=== PATIENT | male | born 1990 | race Native Hawaiian/Other Pacific Islander ===

== ENCOUNTER 2020-03-18 19:02 | Emergency (ER) | payer OTHER ==
--- NOTE | 2020-03-18 20:01 | XRAY Report ---
PROCEDURE: Wrist 4 View LT INDICATIONS: FELL WITH OUTREACHED L WRIST/HAND/PAIN TECHNIQUE: 4 views of the wrist were acquired. COMPARISON: None FINDINGS: Bones: Question acute scaphoid waist fracture. Old ulnar styloid avulsion No suspicious bony lesions. Scaphoid view: Question acute scaphoid waist fracture. However, this is less obvious on the scaphoid view than on other views. Soft tissues: No suspicious soft tissue calcifications. IMPRESSION: Question scaphoid waist fracture. Consider CT for confirmation. Reviewed by: Gurjit Strange MD on 03/18/2020 8:00 PM PDT Approved by: Gurjit Strange MD on 03/18/2020 8:00 PM PDT Station ID: [id number]
--- NOTE | 2020-03-18 20:02 | XRAY Report ---
PROCEDURE: Elbow 3 View LT INDICATIONS: FELL/INJURED L ELBOW/ PAIN TECHNIQUE: 3 views of the elbow were acquired. COMPARISON: None FINDINGS: Bones: No fractures or dislocations. No suspicious bony lesions. Soft tissues: No elbow joint effusion. No suspicious soft tissue calcifications. IMPRESSION: No evidence acute bony abnormality of the left elbow. Reviewed by: Gurjit Strange MD on 03/18/2020 8:01 PM PDT Approved by: Gurjit Strange MD on 03/18/2020 8:01 PM PDT Station ID: [id number]
--- NOTE | 2020-03-18 20:44 | ED Physician Documentation ---
History of Present Illness - Stated complaint Stated Complaint: LT ARM INJ - Chief complaint Chief Complaint: Trauma Ext - Additonal information Additional information: 29-year-old male presents to the emergency department for evaluation of left elbow and wrist pain. He reports that he was jogging this evening and turned to look behind him and he ended up falling backwards. He hyperextended his arm underneath him when he fell and has had pain in the elbow and wrist since. He denies any history of previous injury to this arm or wrist. He is right-hand dominant Review of Systems Constitutional: reports: Reviewed and negative Ears: reports: Reviewed and negative Nose: reports: Reviewed and negative Cardiac: reports: Reviewed and negative Respiratory: reports: Reviewed and negative GI: reports: Reviewed and negative : reports: Reviewed and negative Musculoskeletal: reports: Extremity pain (left arm/elbow/wrist), Joint pain PD PAST MEDICAL HISTORY - Past Medical History Past Medical History: No - Past Surgical History Past Surgical History: No - Present Medications Home Medications: Ambulatory Orders Medication Instructions Recorded Confirmed Ibuprofen [Motrin] 600 mg PO Q6H PRN #30 tab 03/18/20 - Allergies Allergies/Adverse Reactions: Allergies Allergy/AdvReac Type Severity Reaction Status Date / Time No Known Drug Allergies Allergy Verified 03/18/20 19:10 - Social History Does the pt smoke?: No Smoking Status: Never smoker Does the pt drink ETOH?: No Does the pt have substance abuse?: No - Immunizations Immunizations are current?: Yes PD ED PE EXPANDED - Extremities Extremities: Left elbow (Normal flexion and extension of elbow against resistance though there is pain on the ulnar medial side. Mild swelling. No deformity.), Left wrist (Tenderness at the snuffbox. Normal flexion and extension of the wrist though painful. 2+ radial and 1+ ulnar pulse) Results - Vitals Vitals: Vital Signs - 24 hr 03/18/20 03/18/20 19:07 19:18 Temperature 37.4 C 37.4 C Heart Rate 82 82 Respiratory 20 20 Rate Blood Pressure 138/81 H 138/81 H O2 Saturation 97 97 Oxygen O2 Source Room air - Rads (name of study) left wrist Radiology: Final report received (Possible scaphoid wrist fracture.) left elbow Radiology: Final report received (No evidence of acute bony abnormality.) PD MEDICAL DECISION MAKING - ED course Complexity details: reviewed results, re-evaluated patient, considered differential, d/w patient ED course: 29-year-old male presents to the emergency department for evaluation of left elbow and left wrist pain after a fall this evening in which he hyperextended his elbow behind him. He does have snuffbox tenderness and the radiologist interprets the x-ray is mildly suggestive of a scaphoid fracture. He was placed in a thumb spica splint and will be referred to orthopedics for follow-up. Though he did have left elbow pain the x-ray does not show any acute pathology. I suspect that he has a sprain secondary to hyperextension of the elbow. He was given a sling for this. He will be given a prescription for ibuprofen and advised close follow-up with primary care provider through [facility] as well as orthopedics. Departure - Departure Disposition: 01 Home, Self Care Clinical Impression: Scaphoid fracture of wrist Qualifiers: Encounter type: initial encounter Scaphoid bone location: unspecified portion of scaphoid Fracture type: closed Fracture alignment: nondisplaced Laterality: left Qualified Code(s): S62.002A - Unspecified fracture of navicular [scaphoid] bone of left wrist, initial encounter for closed fracture Elbow sprain, ulnar collateral ligament Qualifiers: Encounter type: initial encounter Laterality: left Qualified Code(s): S53.442A - Ulnar collateral ligament sprain of left elbow, initial encounter Condition: Stable Record reviewed to determine appropriate education?: Yes Instructions: ED Fx Wrist Navicular Poss, ED Sprain Elbow Follow-Up: Braxton Waldrop MD [Provider Admit Priv/Credential] - Prescriptions: Ibuprofen [Motrin] 600 mg PO Q6H PRN #30 tab PRN Reason: Pain Comments: I hope that you are feeling better soon. The x-ray of your elbow does not show any broken bones. I suspect that you sprained the elbow when you hyperextended it behind your body. Please use the sling for comfort. However the x-ray of the wrist suggest that you may have a scaphoid fracture. We have placed you in a type of splint called a thumb spica. This is the type of splint that must remain dry. I would like you to follow-up tomorrow with [facility]. They should refer you to orthopedics. Otherwise you may follow-up with our orthopedics department within the week. Please take ibuprofen as prescribed for pain. Return to the emergency department for fevers, finger numbness or tingling or suddenly severe or different pain
[2020-03-18 20:57] VITALS: BP 127/86
== END 2020-03-18 20:56 | disposition home or self-care (01) ==
LOC: ED 19:02
DX: S62.002A Unspecified fracture of navicular [scaphoid] bone of left wrist, initial encounter for closed fracture (principal); S53.442A Ulnar collateral ligament sprain of left elbow, initial encounter; W01.0XXA Fall on same level from slipping, tripping and stumbling without subsequent striking against object, initial encounter; Y93.02 Activity, running
CPT/HCPCS: 99281; 99283

== ENCOUNTER 2020-03-25 10:46 | Day surgery (SDC) | payer OTHER ==
[~2020-03-25 10:46] MED LIST: BUPIVACAINE 0.25% PF 30 ML VIAL ONE; CEFAZOLIN SODIUM IN 0.9 % NACL 2 GM/100 ML BAG IV ONE
[2020-03-25] MEDS ORDERED: LACTATED RINGERS 1,000 ML IV ONE ×3 (11:15→14:00)
--- NOTE | 2020-03-25 11:48 | ANESTHESIA ---
Pre-Anesthesia VS, & Labs - Diagnosis L scaphoid fracture - Procedure left scaphoid ORIF Vital Signs: Temp Pulse Resp BP Pulse Ox 36.7 C 65 18 114/76 98 03/25/20 10:56 03/25/20 10:56 03/25/20 10:56 03/25/20 10:56 03/25/20 10:56 Height: 5 ft 4.96 in Weight (kg): 63 kg Body Mass Index: 23.1 BMI Classification: Healthy weight - NPO >8 hours Home Medications and Allergies Home Medications: Ambulatory Orders Acetaminophen [Tylenol] 650 mg PO Q6H PRN 03/21/20 Acetaminophen [Tylenol] 650 mg PO Q6H PRN 03/21/20 Allergies/Adverse Reactions: Allergies Allergy/AdvReac Type Severity Reaction Status Date / Time No Known Drug Allergies Allergy Verified 03/18/20 19:10 Anes History & Medical History - Anesthetic History Anesthesia Complications: reports: No previous complications Family history of Anesthesia Complications: Denies Family history of Malignant Hyperthermia: Denies - Medical History Cardiovascular: reports: None Pulmonary: reports: None Gastrointestinal: reports: None Urinary: reports: None Musculoskeletal: reports: Other Endocrine/Autoimmune: reports: None Skin: reports: None Smoking Status: Never smoker Exam General: Alert, Oriented x3, No acute distress Dental: WNL Mouth Openin Fingerbreadth Neck Mobility: Normal Mallampati classification: I Thyromental Distance: 4-6 cm Respiratory: Lungs clear, Normal breath sounds, No respiratory distress, No accessory muscle use Cardiovascular: Regular rate, Normal S1, Normal S2, No murmurs Plan Anesthesia Type: General Consent for Procedure(s) Verified and Reviewed: Yes Code Status: Attempt Resuscitation ASA classification: 1-Healthy patient Is this case an emergency?: No
[2020-03-25] MEDS ORDERED: ACETAMINOPHEN 1,000 MG/100 ML 100 ML IV ONE (11:49)
[2020-03-25] MEDS ORDERED: ePHEDrine 50 MG/ML VIAL IVP PRN (11:49)
[2020-03-25] MEDS ORDERED: ATROPINE ABBOJECT 1 MG/10 ML SYRINGE IVP PRN (11:49)
[2020-03-25] MEDS ORDERED: NALOXONE 0.4 MG/ML VIAL IVP PRN (11:49)
[2020-03-25] MEDS ORDERED: METOCLOPRAMIDE 10 MG/2 ML VIAL IVP PRN (11:49)
[2020-03-25] MEDS ORDERED: fentaNYL 100 MCG/2 ML VIAL IVP PRN (11:49)
[2020-03-25] MEDS ORDERED: HYDROmorphone 0.5 MG/0.5 ML SYRINGE IVP PRN (11:49)
[2020-03-25] MEDS ORDERED: MORPHINE 2 MG/ML CARPUJECT IVP PRN (11:49)
[2020-03-25] MEDS ORDERED: ONDANSETRON 4 MG/2 ML VIAL IVP PRN ×2 (11:49→14:02)
[2020-03-25] MEDS ORDERED: LACTATED RINGERS 1,000 ML IV SCH (12:00)
[2020-03-25] MEDS ORDERED: BUPIVACAINE 0.25% PF 30 ML VIAL SUBQ ONE ×2 (12:00→13:29)
[2020-03-25] MEDS ORDERED: KETOROLAC 30 MG/ML VIAL IVP ONE (14:00)
[2020-03-25] MEDS ORDERED: oxyCODONE 5 MG TABLET PO PRN (14:02)
[2020-03-25] MEDS ORDERED: HYDROmorphone 0.5 MG/0.5 ML SYRINGE ONE (14:16)
[2020-03-25] MEDS ORDERED: fentaNYL 100 MCG/2 ML VIAL ONE (14:16)
--- NOTE | 2020-03-25 14:25 | ANESTHESIA POST OP EVALUATION ---
Anesthesia Post Eval - Post Anesthesia Eval Vitals: Last Vital Signs Temp 36.6 C 03/25/20 14:10 Pulse 83 03/25/20 14:15 Resp 9 L 03/25/20 14:15 BP 125/58 L 03/25/20 14:15 Pulse Ox 96 03/25/20 14:15 CV Function Including HR & BP: positive: Stable Pain Control: positive: Satisfactory Nausea & Vomiting: positive: Negative Mental Status: positive: Baseline Respiratory Status: Airway Patent Hydration Status: Satisfactory Anesthesia Complications: positive: None
--- NOTE | 2020-03-25 14:28 | OPERATIVE REPORT ---
Operative Report - General Procedure Date: 03/25/20 - Procedure Note Anesthesia Technique: General LMA Estimated Blood Loss (mL): 5 - Other Other Information/Narrative: Tourniquet time: Approximately 98 minutes at 200 mmHg Indications for the procedure: Patient is a 29-year-old [id number] male who sustained injury to his left wrist on March 18. He was running, fell backwards landing on an internally rotated arm with immediate pain about the wrist and elbow. He was taken to the local emergency room, where radiographs and physical physical exam demonstrated a minimally displaced proximal pole scaphoid fracture. He was instructed to follow-up with the clinic. He presented aviation medicine and a CT of the wrist was obtained. The patient was referred to orthopedics and seen on the same day. Physical exam radiographs and CT scan were consistent with a minimally displaced proximal third scaphoid fracture. Due to the proximal nature of the fracture and the tenuous blood supply of the scaphoid, recommendation was made for operative intervention. Physical exam also revealed significant medial ecchymosis along the elbow. Exam under fluoroscopy showed dislocation of the ulnohumeral joint at approximately 30 degrees of extension. The joint appeared congruent at higher degrees of flexion. Valgus and varus stress at 30 degrees under fluoroscopy did not demonstrate any significant medi al or lateral widening. CT scan was obtained of the elbow and a small less than 50% of the height coronoid fracture was appreciated. No radial head fracture or intra-articular bone fragments were observed. Based on this, the recommendation was made for operative fixation of the scaphoid and nonoperative management of his elbow dislocation. He was placed into a posterior slab splint and thumb s pica splint in preparation for the OR. We discussed the risks of nonunion, malunion, avascular necrosis both with and without surgery. We discussed that an untreated scaphoid fracture which progresses to nonunion, predictably results in radial sided wrist arthritis over time. We discussed risks of surgery to include bleeding, infection, implant complications, implant failure, nonunion, malunion, avascular necrosis, wrist stiffness, need for extensive rehabilitation, need for further procedures as well as general surgical risks to include blood clot, pulmonary embolus, cardiac arrest, stroke and . We discussed the expected postop course, duration of immobilization, and likely return to duty. Questions were answered and informed consent was signed. We also discussed his left elbow and outlined a treatment plan for that. Description of the procedure: On the day of surgery the patient was met in the preoperative holding area identity was confirmed using full name and date of , we then verified the patient, procedure, & surgical site. The H&P was updated. I initialed the near the surgical site. The patient was then turned over to anesthesia, transported to the operating room and transferred to the operating table in the supine position with the left upper extremity on a hand table. The splints were taken down and care was taken to maintain the elbow in approximately 90 degrees of flexion. A nonsterile tourniquet was placed high on the left brachium. The left upper extremity was then prepped and draped in usual sterile fashion, again taking care to maintain the elbow in some flexion to improve stability. Superficial landmarks were marked consisting of Cecilia's tubercle, the radial styloid, and the scaphoid tubercle. A surgical timeout was then conducted to verify the correct patient, procedure and surgical site. We verified that we had all the correct equipment and that preoperative antibiotics consisting of IV cefazolin had been administered. A 2.5 cm longitudinal incision was drawn out in line just ulnar to Cecilia's tubercle towards the third ray. The left upper extremity was then exsanguinated with an Esmarch bandage and the tourniquet was raised. The skin was sharply incised and the subcutaneous tissue was dissected using a combination of sharp and blunt dissection down to the level of the extensor retinaculum. The retinaculum was sharply divided revealing the second and third dorsal compartments. The EPL and extensor carpi radialis tendons were retracted radially, the fourth dorsal compartment was retracted ulnarly to expose the dorsal wrist capsule. Then the dorsal wrist capsule was sharply incised in a longitudinal fashion, taking care not to injure the dorsal scapholunate interosseous ligament. Retactors were placed within the capsule to facilitate exposure of the proximal pole of scaphoid. The fracture was easily visualized, and was well aligned. A guidewire was started just radial to the scapholunate ligament and trajectory was confirmed on fluoroscopy. The wire was partially inserted and then the lateral was checked. This wire was felt to be too volarly translated and a parallel wire was placed more dorsally. Trajectory of the new guidewire was again confirmed with fluoroscopy. Satisfied that this trajectory was appropriate, the first guidewire was removed and the second guidewire was advanced to the subchondral bone. The guidewire was measured and the length of the scaphoid measured slightly over 22 mm. The parallel drill guide was used to place an antirotation wire radial to the central wire. Its position was also confirmed on fluoroscopy. The primary guidewire was then advanced through the far cortex of the scaphoid, the trapezium and into the soft tissues of the thenar eminence on oscillate to anchor it and facilitate removal should it break during drilling. The cannulated opening drill was then used over the guidewire to open the cortex, this was then switched for the long cannulated drill over the guidewire to prepare the scaphoid. A small-mini (approximately 3.5 mm) x 18 mm Accutrak screw was selected and placed over the guidewire under hand power. Under direct visualization we confirmed that the screw had been appropriately countersunk approximately 2-3 mm. The guidewire was then removed. Final radiographs in multiple orientations were obtained using fluoroscopy, with appropriate position of the Acutrak screw on all imaging. I did not appreciate any cortical breaches and the screw was contained within the scaphoid on all views. The wound was then irrigated with sterile saline, the capsule was not closed, the extensor retinaculum was closed with 2-0 Vicryl in [id number] fashion, subcutaneous tissue was closed with 2-0 Vicryl and the skin was then closed using 3-0 nylon interrupted horizontal mattress sutures. Half percent Marcaine was injected into the christiano-incisional soft tissues. 10 mL of quarter percent Marcaine plain were injected into the dorsal periincisional soft tissues. 5 mL of quarter percent Marcaine plain was injected into the thenar eminence. The wound was then dressed with Xeroform 4 x 4's and webril. The tourniquet was let down and a plaster thumb spica splint was placed followed by an Jason bandage. The drapes were taken down and reduction of the elbow was confirmed under fluoroscopy and then a hinged range of motion elbow brace was placed locked in 90 degrees flexion. Anesthesia was reversed, and the patient was transferred from the operating table back to the hospital bed. The patient was then transferred to the PACU in stable condition. There were no complications the patient tolerated the procedure well. Operative plan: 1. Patient will discharge from same day surgery when criteria met. 2. Keep splint clean and dry, the Splint will be removed at the first follow-up appointment. Continue hinged elbow brace locked at 90 degrees for now. I will call the patient to instruct him on how to unlock it in several days. 3. Patient will be immobilized until radiographic signs of healing are demonstrated. Anticipate approximately 2-6 weeks of cast immobilization Followed by removable wrist splint immobilization to facilitate early motion.
[2020-03-25] MEDS ORDERED: oxyCODONE 5 MG TABLET ONE (14:55)
[2020-03-25] MEDS ORDERED: KETOROLAC 30 MG/ML VIAL ONE (15:29)
[2020-03-25] MEDS ORDERED: ONDANSETRON 4 MG/2 ML VIAL ONE (15:50)
[2020-03-25 16:15] VITALS: BP 122/71
== END 2020-03-25 10:47 | disposition home or self-care (01) ==
LOC: SDS 10:46
PROVIDERS: ATTEND Orthopaedic Surgery
PROC: 0PSN04Z Reposition Left Carpal with Internal Fixation Device, Open Approach (ICD-10-PCS; principal; 2020-03-25 12:00)
DX: S62.035A Nondisplaced fracture of proximal third of navicular [scaphoid] bone of left wrist, initial encounter for closed fracture (principal); W18.30XA Fall on same level, unspecified, initial encounter; Y93.02 Activity, running; Y99.8 Other external cause status

== ENCOUNTER 2020-06-30 08:32 | Outpatient (CLI) | payer OTHER ==
--- NOTE | 2020-06-30 10:10 | MRI Report ---
PROCEDURE: Knee LT W/O INDICATIONS: PAIN TECHNIQUE: Noncontrast sagittal PD fast spin echo and T2 fast spin echo with fat saturation, sagittal 3-D gradie nt sequence with fat saturation; coronal T1 spin echo and PD fast spin echo with fat saturation, and axial PD fast spin echo with fat saturation through the knee. COMPARISON: None. FINDINGS: Image quality: Excellent. Menisci: The medial and lateral menisci demonstrate normal morphology and internal signal. The meni scal root ligaments appear intact. Cruciate ligaments: The anterior and posterior cruciate ligaments appear intact. Medial structures: The medial collateral ligament appears intact. Visualized portions of the pes ans erinus tendons appear normal. No abnormal bursal fluid. Lateral structures: The lateral collateral ligament, long and short heads of the biceps femoris tend on appear intact. The popliteus tendon appears normal. Iliotibial band appears normal. Anterior structures: The quadriceps and patellar tendons appear intact. Patellar alignment is maryana l. No femoral trochlear dysplasia or ventral trochlear prominence. No edema in the infrapatellar fa t pad. Bones and cartilage: No bone marrow contusions or fractures. The cartilage of the medial and latera l femorotibial compartments, as well as the patellofemoral compartment, appears normal in thickness. Joint space: There is physiologic knee joint fluid. No Palma?s cyst. Trace ganglion cyst along the popliteus. Normal appearing synovial plicae are incidentally noted. IMPRESSION: Trace ganglion cyst along the popliteus. Otherwise negative knee MRI. No internal derang ement. No explanation for knee pain. Reviewed by: Tiffanie Giron MD on 06/30/2020 10:09 AM [facility] [place] Approved by: Tiffanie Giron MD on 06/30/2020 10:09 AM [facility] [place] Station ID: [id number]
== END 2020-06-30 08:33 | disposition home or self-care (01) ==
LOC: DI 08:32
PROVIDERS: ATTEND Student in an Organized Health Care Education/Training Program
DX: M67.462 Ganglion, left knee (principal)

== ENCOUNTER 2022-02-23 07:09 | Outpatient (CLI) | payer OTHER ==
[2022-02-23] MEDS ORDERED: GADOBUTROL 7.5 MMOL/7.5 ML VIAL ONE (07:18)
[2022-02-23] MEDS ORDERED: GADOBUTROL 7.5 MMOL/7.5 ML VIAL IVP ONE (08:51)
--- NOTE | 2022-02-23 10:47 | MRI Report ---
PROCEDURE: Brain W/WO INDICATIONS: HEADACHE CONTRAST: IV CONTRAST: Gadavist ml: 6 TECHNIQUE: Noncontrast axial T1 spin echo, axial T2 fast spin echo, sagittal and axial FLAIR, coronal T2 fast sp in echo, axial gradient echo, axial diffusion and ADC through the brain. After the administration of contrast, axial and coronal T1 spin echo with fat saturation through the brain. COMPARISON: None. FINDINGS: Image quality: Excellent. CSF spaces: Basal cisterns are patent. No extra-axial fluid collections. Ventricles are normal in size and shape. Brain: No midline shift. No intracranial bleeds or masses. No abnormal intracranial enhancement. There is cerebral volume loss for age. There is periventricular white matter chronic small vessel is chemic change. The brainstem appears normal. Diffusion-weighted images demonstrate no acute ischemi c insults. No chronic ischemic insults. Normal intravascular flow voids are present. Skull and face: Calvarial marrow is normal in signal. Orbits appear normal. Sinuses: Sinuses and mastoids appear predominantly clear. IMPRESSION: No acute or significant intracranial abnormality. Reviewed by: Bertram Jauregui MD on 02/23/2022 10:45 AM PDT Approved by: Bertram Jauregui MD on 02/23/2022 10:45 AM PDT Station ID: [id number]
== END 2022-02-23 07:10 | disposition home or self-care (01) ==
LOC: DI 07:09
PROVIDERS: ATTEND Nurse Practitioner Family
DX: R51.9 Headache, unspecified (principal)
CPT/HCPCS: 70553; A9585